=== PATIENT | female | born 1985 | race Caucasian/White ===

== ENCOUNTER 2016-10-12 21:28 | Emergency (ER) | payer OTHER ==
--- NOTE | 2016-10-12 23:36 | ED NURSING NOTES ---
Clinical Report - Nurses [facility] [address] [place] [address] 10/12/2016 21:29 Patient: ALEX ORTIZ TRIAGE Triage time 21:45 Oct 12 2016. Acuity: LEVEL 3. Chief Complaint: ABDOMINAL PAIN and BLOOD IN STOOLS, FLANK PAIN, DIFFICULTY VOIDING and DECREASED VOIDING (Abdominal distension). Alert. No acute distress. --21:52 Jhon Coleman R.N. 21:45 10/12/16. BP: 117/77. HR: 65. RR: 16. O2 saturation: 100% on room air. Temp: 98.2 F. Pain level now: 01/25. --21:52 Jhon Coleman R.N. Weight: 56.2 kg stated. Height/Length: 67 inches Per Patient. BMI: 19.4. --21:45 Jhon Coleman R.N. Medications Nitrofurantoin Oral. --21:47 Jhon Coleman R.N. Mirtazapine Oral. --22:11 Jhon Coleman R.N. Allergies Erythromycin. --21:48 Jhon Coleman R.N. Amoxicillin. --21:48 Jhon Coleman R.N. Sulfa. --21:48 Jhon Coleman R.N. Vicodin. --21:48 Jhon Coleman R.N. Midrin. --21:48 Jhon Coleman R.N. History Arrived by private vehicle. Historian: patient. Accompanied by family. Onset. (Roughly 5 days ago.). ( Pt has had abd pain for the past 5 days. Last night went to [place]. Abd CT revealed a L sided kidney stone. Pt sent home on abx. Pt feels like something was missed, she is having a lot of pain, reports bloody-mucus in her stool 2-3 days ago.). She has had nausea and vomiting. SOCIAL HX: Light tobacco smoker. Occasional alcohol use. History of drug use: marijuana. No infectious disease exposure. ABUSE ASSESSMENT: No report of abuse. FALL RISK ASSESSMENT: Fall risk assessment completed. No fall risk identified. NUTRITIONAL RISK ASSESSMENT: The nutritional risk assessment revealed no deficiencies. FUNCTIONAL ASSESSMENT: Functional assessment: no impairments noted. LEARNING NEEDS ASSESSMENT: The learning needs assessment revealed no barriers. SKIN INTEGRITY ASSESSMENT: Skin integrity risk assessment completed. No skin integrity risk identified. --21:52 Jhon Coleman R.N. PROBLEMS: Chronic Back Pain. Sprain. Tonsillitis. Sinusitis. Myalgias. Depression. Anxiety Reaction. Chest Wall Pain. Ovarian Cyst. Abdominal Pain. Ureterolithiasis. Nephrolithiasis. Myofascial Strain. Tetanus Status. Immunizations. LNMP - Last Normal Menstrual Period. --21:49 Jhon Coleman R.N. ADDITIONAL SURGERIES: Dilatation & Curettage. Oophorectomy. Tonsillectomy. Tubal Ligation. Uterine ablation. --21:49 Jhon Coleman R.N. Interventions ID band on patient. To treatment room. --21:52 Jhon Coleman R.N. PHYSICAL ASSESSMENT GENERAL / NEURO / PSYCH: Alert. Oriented X 4. Appears in no acute distress. RESPIRATORY: Respirations not labored. CVS: Capillary refill less than 2 seconds. GI / : Abdominal distention with tenderness to palpation. Diminished bowel sounds in all quadrants. Blood present in the stool. 2-3 days ago with mucous. SKIN: ( Pt reports some acute "rashes" to her face.). --21:53 Jhon Coleman R.N. NURSING PROGRESS NOTES Monitoring of patient in place. Reassurance given. Two patient identifiers checked. Call light placed in reach. Bed placed in lowest position. Patient ready for evaluation- ED physician notified. --21:53 Jhon Coleman R.N. Patient ID band checked for patient name and birthdate: patient confirmed. Instructions provided to collect clean catch urine and patient verbalized understanding. Clean catch urine collected with return of esteban-colored cloudy urine; sample sent to lab. --21:53 Jhon Coleman R.N. 22:24 10/12/2016 Site #1 started via IV in the right antecubital space with an 20g angiocath, with aseptic technique and good blood return; one attempt. Blood drawn: rainbow set. Labeled in the presence of the patient and sent to the lab. Saline lock flushed with 10 mL saline. --22:24 Jhon Coleman R.N. 22:24 10/12/2016 Started bag #1 1000 mL IV Fluids IV NS (Saline); bolus of 1000 mL wide open via site #1. Allergies verified and confirmed 5 rights. IV patency established. IV site checked: no pain, redness, or swelling. IV flushed thoroughly pre- and post-medication administration. Completed per protocol. --22:24 Jhon Coleman R.N. 22:25 10/12/2016 Toradol IVP 30 mg given. via site #1. Allergies verified and confirmed 5 rights. IV patency established. IV site checked: no pain, redness, or swelling. IV flushed thoroughly pre- and post-medication administration. IVP given by RN. --22:25 Jhon Coleman R.N. ( MD in to assess Pt. [place] [facility] [place] from Pt's visit last night. Pt is resting in room, family at bedside.). --22:26 Jhon Coleman R.N. 23:20 10/12/2016 IV Fluids IV NS Discontinued: bag #1 infused. Total amount infused: 1000 mL. IV patency established. IV site checked: no pain, redness, or swelling. IV flushed thoroughly. --23:20 Jhon Coleman R.N. 23:20 10/12/2016 Toradol IVP Response: no adverse reaction. --23:20 Jhon Coleman R.N. ( Pt is apparently asleep, resting comfortably, no noticed distress, Pt's son at bedside, [facility].). --23:20 Jhon Coleman R.N. Care transferred and report given (to JOHNNY Araya). --23:29 Jhon Coleman R.N. DISPOSITION / DISCHARGE 23:40 10/12/16. Condition at departure: stable. The goals identified in the patient's plan of care were met. No learning barriers present. Discharge instructions provided and reviewed with the patient and spouse. Reviewed need for increased fluid intake. Patient and spouse verbalized understanding. Written instructions provided in German. ( Follow up with your PCP in four days. Take prescribed medications as instructed. Return if symptoms worsen. Patient verbalized understanding and had no questions at this time.). The patient was discharged by the physician. She was discharged home and accompanied by spouse. She left the Emergency Department ambulatory and via private vehicle. Spouse driving. FALL RISK ASSESSMENT: Fall risk assessment completed. No fall risk identified. --00:04 Quiana Stephens 23:40 10/12/16. BP: 95/60. HR: 65. RR: 20. O2 saturation: 98% on room air. Temp: 98 F (oral). Pain level now: 08/25. --00:04 Quiana Stephens 23:40 10/12/2016 Site #1 removed upon discharge. Catheter intact. Bandaid applied. --00:04 Quiana Stephens. Locked/Released at 10/13/2016 0:05 by Quiana Stephens,
--- NOTE | 2016-10-12 23:36 | ED NURSING NOTES ---
Clinical Report - Nurses [facility] [address] [place] [address] 10/12/2016 21:29 Patient: ALEX ORTIZ TRIAGE Triage time 21:45 Oct 12 2016. Acuity: LEVEL 3. Chief Complaint: ABDOMINAL PAIN and BLOOD IN STOOLS, FLANK PAIN, DIFFICULTY VOIDING and DECREASED VOIDING (Abdominal distension). Alert. No acute distress. --21:52 Jhon Coleman R.N. 21:45 10/12/16. BP: 117/77. HR: 65. RR: 16. O2 saturation: 100% on room air. Temp: 98.2 F. Pain level now: 01/25. --21:52 Jhon Coleman R.N. Weight: 56.2 kg stated. Height/Length: 67 inches Per Patient. BMI: 19.4. --21:45 Jhon Coleman R.N. Medications Nitrofurantoin Oral. --21:47 Jhon Coleman R.N. Mirtazapine Oral. --22:11 Jhon Coleman R.N. Allergies Erythromycin. --21:48 Jhon Coleman R.N. Amoxicillin. --21:48 Jhon Coleman R.N. Sulfa. --21:48 Jhon Coleman R.N. Vicodin. --21:48 Jhon Coleman R.N. Midrin. --21:48 Jhon Coleman R.N. History Arrived by private vehicle. Historian: patient. Accompanied by family. Onset. (Roughly 5 days ago.). ( Pt has had abd pain for the past 5 days. Last night went to [place]. Abd CT revealed a L sided kidney stone. Pt sent home on abx. Pt feels like something was missed, she is having a lot of pain, reports bloody-mucus in her stool 2-3 days ago.). She has had nausea and vomiting. SOCIAL HX: Light tobacco smoker. Occasional alcohol use. History of drug use: marijuana. No infectious disease exposure. ABUSE ASSESSMENT: No report of abuse. FALL RISK ASSESSMENT: Fall risk assessment completed. No fall risk identified. NUTRITIONAL RISK ASSESSMENT: The nutritional risk assessment revealed no deficiencies. FUNCTIONAL ASSESSMENT: Functional assessment: no impairments noted. LEARNING NEEDS ASSESSMENT: The learning needs assessment revealed no barriers. SKIN INTEGRITY ASSESSMENT: Skin integrity risk assessment completed. No skin integrity risk identified. --21:52 Jhon Coleman R.N. PROBLEMS: Chronic Back Pain. Sprain. Tonsillitis. Sinusitis. Myalgias. Depression. Anxiety Reaction. Chest Wall Pain. Ovarian Cyst. Abdominal Pain. Ureterolithiasis. Nephrolithiasis. Myofascial Strain. Tetanus Status. Immunizations. LNMP - Last Normal Menstrual Period. --21:49 Jhon Coleman R.N. ADDITIONAL SURGERIES: Dilatation & Curettage. Oophorectomy. Tonsillectomy. Tubal Ligation. Uterine ablation. --21:49 Jhon Coleman R.N. Interventions ID band on patient. To treatment room. --21:52 Jhon Coleman R.N. PHYSICAL ASSESSMENT GENERAL / NEURO / PSYCH: Alert. Oriented X 4. Appears in no acute distress. RESPIRATORY: Respirations not labored. CVS: Capillary refill less than 2 seconds. GI / : Abdominal distention with tenderness to palpation. Diminished bowel sounds in all quadrants. Blood present in the stool. 2-3 days ago with mucous. SKIN: ( Pt reports some acute "rashes" to her face.). --21:53 Jhon Coleman R.N. NURSING PROGRESS NOTES Monitoring of patient in place. Reassurance given. Two patient identifiers checked. Call light placed in reach. Bed placed in lowest position. Patient ready for evaluation- ED physician notified. --21:53 Jhon Coleman R.N. Patient ID band checked for patient name and birthdate: patient confirmed. Instructions provided to collect clean catch urine and patient verbalized understanding. Clean catch urine collected with return of esteban-colored cloudy urine; sample sent to lab. --21:53 Jhon Coleman R.N. 22:24 10/12/2016 Site #1 started via IV in the right antecubital space with an 20g angiocath, with aseptic technique and good blood return; one attempt. Blood drawn: rainbow set. Labeled in the presence of the patient and sent to the lab. Saline lock flushed with 10 mL saline. --22:24 Jhon Coleman R.N. 22:24 10/12/2016 Started bag #1 1000 mL IV Fluids IV NS (Saline); bolus of 1000 mL wide open via site #1. Allergies verified and confirmed 5 rights. IV patency established. IV site checked: no pain, redness, or swelling. IV flushed thoroughly pre- and post-medication administration. Completed per protocol. --22:24 Jhon Coleman R.N. 22:25 10/12/2016 Toradol IVP 30 mg given. via site #1. Allergies verified and confirmed 5 rights. IV patency established. IV site checked: no pain, redness, or swelling. IV flushed thoroughly pre- and post-medication administration. IVP given by RN. --22:25 Jhon Coleman R.N. ( MD in to assess Pt. [place] [facility] [place] from Pt's visit last night. Pt is resting in room, family at bedside.). --22:26 Jhon Coleman R.N. 23:20 10/12/2016 IV Fluids IV NS Discontinued: bag #1 infused. Total amount infused: 1000 mL. IV patency established. IV site checked: no pain, redness, or swelling. IV flushed thoroughly. --23:20 Jhon Coleman R.N. 23:20 10/12/2016 Toradol IVP Response: no adverse reaction. --23:20 Jhon Coleman R.N. ( Pt is apparently asleep, resting comfortably, no noticed distress, Pt's son at bedside, [facility].). --23:20 Jhon Coleman R.N. Care transferred and report given (to JOHNNY Araya). --23:29 Jhon Coleman R.N. DISPOSITION / DISCHARGE 23:40 10/12/16. Condition at departure: stable. The goals identified in the patient's plan of care were met. No learning barriers present. Discharge instructions provided and reviewed with the patient and spouse. Reviewed need for increased fluid intake. Patient and spouse verbalized understanding. Written instructions provided in Thai. ( Follow up with your PCP in four days. Take prescribed medications as instructed. Return if symptoms worsen. Patient verbalized understanding and had no questions at this time.). The patient was discharged by the physician. She was discharged home and accompanied by spouse. She left the Emergency Department ambulatory and via private vehicle. Spouse driving. FALL RISK ASSESSMENT: Fall risk assessment completed. No fall risk identified. --00:04 Quiana Stephens 23:40 10/12/16. BP: 95/60. HR: 65. RR: 20. O2 saturation: 98% on room air. Temp: 98 F (oral). Pain level now: 08/25. --00:04 Quiana Stephens 23:40 10/12/2016 Site #1 removed upon discharge. Catheter intact. Bandaid applied. --00:04 Quiana Stephens. Locked/Released at 10/13/2016 0:05 by Quiana Stephens,
--- NOTE | 2016-10-12 23:36 | ED ORDER SUMMARY ---
..... Patient: ALEX ORTIZ OrderSheet [facility] VisitID: [id number] [place] [address] 31y, F Registration Date/Time: 10/12/2016 ORDER SHEET Weight: 56.2 kg (stated) Allergies: Erythromycin, Amoxicillin, Sulfa, Vicodin, Midrin GENERAL ORDERS: CBC w Diff Urgent (22:18 10/12/2016 Martine Maldonado) (22:19 MCook R.N.) CMP Urgent (22:18 10/12/2016 Martine Maldonado) (22:19 MCook R.N.) UA-Culture if indicated Urgent (22:18 10/12/2016 Martine Maldonado) (22:19 MCook R.N.) Amylase Urgent (22:18 10/12/2016 Martine Maldonado) (22:19 MCook R.N.) Lipase Urgent (22:18 10/12/2016 Martine Maldonado) (22:19 MCook R.N.) Urine Drug Screen Urgent (22:18 10/12/2016 Martine Maldonado) (22:19 MCook R.N.) Urine Urgent (22:18 10/12/2016 Martine Maldonado) (22:19 MCook R.N.) MEDICATION ORDERS: IV FLUIDS: IV NS : initial bolus none -, then 1000 mL/hr for X1 (NOW) (22:18 10/12/2016 Martine Maldonado) (22:24 MCook R.N.) Toradol IV 30 mg (NOW) (22:18 10/12/2016 Martine Maldonado) (22:25 MCook R.N.) ORDER SHEET NOTES: [Electronically signed by Philippe Lindsay Dr. (23:42 10/12/2016)] [Electronically signed by Quiana Stephens (00:04 10/13/2016)] [Electronically locked/signed by Quiana Stephens (00:04 10/13/2016)]
--- NOTE | 2016-10-12 23:36 | ED ORDER SUMMARY ---
..... Patient: ALEX ORTIZ OrderSheet [facility] VisitID: [id number] [place] [address] 31y, F Registration Date/Time: 10/12/2016 ORDER SHEET Weight: 56.2 kg (stated) Allergies: Erythromycin, Amoxicillin, Sulfa, Vicodin, Midrin GENERAL ORDERS: CBC w Diff Urgent (22:18 10/12/2016 Martine Maldonado) (22:19 MCook R.N.) CMP Urgent (22:18 10/12/2016 Martine Maldonado) (22:19 MCook R.N.) UA-Culture if indicated Urgent (22:18 10/12/2016 Martine Maldonado) (22:19 MCook R.N.) Amylase Urgent (22:18 10/12/2016 Martine Maldonado) (22:19 MCook R.N.) Lipase Urgent (22:18 10/12/2016 Martine Maldonado) (22:19 MCook R.N.) Urine Drug Screen Urgent (22:18 10/12/2016 Martine Maldonado) (22:19 MCook R.N.) Urine Urgent (22:18 10/12/2016 Martine Maldonado) (22:19 MCook R.N.) MEDICATION ORDERS: IV FLUIDS: IV NS : initial bolus none -, then 1000 mL/hr for X1 (NOW) (22:18 10/12/2016 Martine Maldonado) (22:24 MCook R.N.) Toradol IV 30 mg (NOW) (22:18 10/12/2016 Martine Maldonado) (22:25 MCook R.N.) ORDER SHEET NOTES: [Electronically signed by Philippe Lindsay Dr. (23:42 10/12/2016)] [Electronically signed by Quiana Stephens (00:04 10/13/2016)] [Electronically locked/signed by Quiana Stephens (00:04 10/13/2016)]
--- NOTE | 2016-10-12 23:36 | ED CLINICAL REPORT ---
Clinical Report - Physicians/Mid Levels [facility] [address] [place] [address] 10/12/2016 21:29 Patient: ALEX ORTIZ Time Seen: 21:52; initial patient contact. Arrived- By private vehicle. Historian- patient. HISTORY OF PRESENT ILLNESS Chief Complaint: ABDOMINAL PAIN. At its maximum, severity described as moderate. When seen in the E.D., severity described as moderate. Modifying factors. Not worsened by anything. Not relieved by anything. It is described as sharp and it is described as located in the left abdomen and the left flank and radiating to the groin. This started about 5 days ago and is still present. The patient has had nausea and vomiting. No loss of appetite or diarrhea. Similar symptoms previously: Many times. Recent medical care: The patient was seen recently in the emergency department. ( Records from [facility] reviewed: Nl CT Abd/Pel except for L lower pole non-obs stone. Nl CBC and CMP. UCx Pos for Nitrofurantoin sensitive E coli.). Seen for similar symptoms. Evaluation/treatment: abdominal CT scan, labs and antibiotic and pain medication prescribed. Diagnosis: urinary tract infection and kidney stone. REVIEW OF SYSTEMS No constipation, hematemesis, difficulty with urination, pain with urination or urinary frequency. No fever or chills. She has had bloody stools (3 days ago). All systems otherwise negative, except as recorded above. PAST HISTORY Chronic Back Pain. Sprain. Tonsillitis. Sinusitis. Myalgias. Depression. Anxiety Reaction. Chest Wall Pain. Ovarian Cyst. Abdominal Pain. Ureterolithiasis. Nephrolithiasis. Myofascial Strain. SURGERIES: Dilatation & Curettage. Oophorectomy. Tonsillectomy. Tubal Ligation. Uterine ablation. SOCIAL HISTORY Current every day smoker. Occasional alcohol use. History of drug use: marijuana. ADDITIONAL NOTES The nursing notes have been reviewed. PHYSICAL EXAM Vital Signs: 10/12/2016 21:45 BP: 117/77. HR: 65. RR: 16. O2 saturation: 100%. Temp: 98.2 F. Pain level now: 8/10. Have been reviewed as normal. Appearance: Alert. Oriented X3. No acute distress. (appears intoxicated, slow speech and eyes half closed.). Eyes: Pupils equal, round and reactive to light. Eyes normal inspection. ENT: Dry mucous membranes present. CVS: Normal heart rate and rhythm. Heart sounds normal. Respiratory: No respiratory distress. Breath sounds normal. Abdomen: Soft. Mild tenderness in the left lower quadrant. No guarding or rebound tenderness. Bowel sounds normal. No organomegaly. No mass. Distention with dullness to percussion. Back: Normal inspection. No CVA tenderness. Skin: Skin warm and dry. Normal skin color. No rash. Extremities: No lower extremity edema. Neuro: Oriented X 3. LABS, X-RAYS, AND EKG Laboratory Tests: UA-Culture if indicated: (TANIA: 10/12/2016 21:55) ( [facility] Final results Test Result Flag Units (Reference) URINE COLOR YELLOW URINE APPEARANCE CLEAR URINE GLUCOSE NEGATIVE (NEGATIVE) URINE BILIRUBIN NEGATIVE (NEGATIVE) URINE KETONE NEGATIVE (NEGATIVE) URINE SPECIFIC GRAVITY 1.025 (1.010-1.030) URINE PH 5.5 (5.0-8.0) URINE PROTEIN NEGATIVE (NEGATIVE) URINE UROBILINOGEN 0.2 EU/dL (0.2-1.0) URINE NITRITE NEGATIVE (NEGATIVE) URINE BLOOD NEGATIVE (NEGATIVE) URINE LEUK ESTERASE NEGATIVE (NEGATIVE) URINE RBC 0-1 rbc/hpf (0-1) URINE WBC 1-3 wbc/hpf (0-1) URINE EPITHELIAL CELLS 10-15 EPI/hpf (0-5) URINE BACTERIA NONE SEEN (NONE SEEN) URINE COMMENT CULT NOT INDICATED URINE CULTURES ARE SET-UP BASED ON THE FOLLOWING CRITERIA:POSITIVE NITRITEPOSITIVE LEUKOCYTE ESTERASEGREATER THAN 10 WHITE BLOOD CELLSMODERATE (2+) OR GREATER BACTERIA Urine: (TANIA: 10/12/2016 21:55) ( [facility] 22:39) Final results Test Result Flag Units (Reference) URINE NEGATIVE CBC w Diff: (TANIA: 10/12/2016 22:05) ( MsgRcvd 10/12/2016 22:37) Final results Test Result Flag Units (Reference) WHITE BLOOD COUNT 9.3 K/uL (4.5-11.5) RED BLOOD COUNT 3.91 L M/uL (4.00-5.20) HEMOGLOBIN 12.0 gm/dL (12.0-16.0) HEMATOCRIT 36.1 % (36.0-46.0) MEAN CELL VOLUME 92 fL (80-100) MEAN CORPUSCULAR HGB 31 pg (26-34) MEAN CORPUSCULAR HGB CONC 33 g/dL (31-37) RED CELL DISTRIBUTION WIDTH 12.9 % (11.6-14.8) PLATELET COUNT 225 K/uL (150-400) NEUTROPHIL % 57.8 % (50-75) LYMPH % 31.0 % (25-40) MONO % 6.8 % (3-14) EOSINOPHIL % 4.1 H % (0-4) BASOPHIL % 0.3 % (0-2) Urine Drug Screen: (TANIA: 10/12/2016 21:55) ( MsgRcvd 10/12/2016 22:47) Final results Test Result Flag Units (Reference) AMPHETAMINE/METHAMPHETAMINE NEGATIVE (NEGATIVE) BARBITURATE NEGATIVE (NEGATIVE) BENZODIAZEPINE POSITIVE H (NEGATIVE) CANNABINOID POSITIVE H (NEGATIVE) COCAINE NEGATIVE (NEGATIVE) ECSTASY NEGATIVE (NEGATIVE) METHADONE NEGATIVE (NEGATIVE) OPIATE POSITIVE H (NEGATIVE) The urine drug screen is a qualitative screening test fordrug overdose and abuse. All screen results should beconsidered as presumptive.Drugs screened for are as follows:BenzodiazepinesCocaineAmphetamines/MetamphetaminesTHC (Tetrahydrocannabinol)OpiatesBarbituratesEcstasyMethadonePositive results are unconfirmed. For confirmation, notifythe lab for the specimen to be sent to the reference lab.All confirmations must be performed by a differentmethodology.The ingestion of natural herbal and plant productscontaining Ephedra/Ephedra metabolites can produce in urineone or more substances capable of cross reacting withamphetamine/methamphetamine immunoassays. These testsprovide a preliminary result only. A more specificalternative chemical method must be used to obtain aconfirmed analytical result. CMP: (TANIA: 10/12/2016 22:05) ( MsgRcvd 10/12/2016 23:19) Final results Test Result Flag Units (Reference) GLUCOSE 94 mg/dL (70-110) BUN 16 mg/dL (7-18) CREATININE 0.9 mg/dL (0.6-1.3) Estimated GFR >60 mL/min Estimated GFR- >60 mL/min Note: Persistent reduction over 3 months in eGFR<60 mL/min/1.73 m2 defines CKD. Patients with eGFR values>=60 mL/min/1.73 m2 may also have CKD if evidence ofpersistent proteinuria. Additional information may be foundat www.kidney.org. SODIUM 142 mmol/L (136-145) POTASSIUM 3.5 mmol/L (3.5-5.1) CHLORIDE 102 mmol/L (98-107) CARBON DIOXIDE 31 mmol/L (21-32) CALCIUM 8.7 mg/dL (8.5-10.1) TOTAL PROTEIN 7.2 g/dL (6.4-8.2) ALBUMIN 3.9 g/dL (3.3-5.0) BILIRUBIN, TOTAL 0.3 mg/dL (0.0-1.0) ALKALINE PHOSPHATASE 80 U/L (46-116) AST (SGOT) 30 U/L (15-37) ALT (SGPT) 23 U/L (12-78) LIPASE 164 U/L (73-393) AMYLASE 32 U/L (25-115) . PROGRESS AND PROCEDURES Disposition: Discharged home in good and improved condition. Condition: good. CLINICAL IMPRESSION Acute left lower quadrant abdominal pain of unknown cause. Acute urinary tract infection with cystitis (Confirmed from records from [facility]). INSTRUCTIONS Drink plenty of fluids. Your Current Medications: CONTINUE TAKING THE FOLLOWING MEDICATIONS: Mirtazapine Oral. Nitrofurantoin Oral. Follow-up: Follow up with your doctor in about four days. Call for an appointment. Screening today revealed the patient's blood pressure to be in the normal range. (Electronically signed by Philippe Lindsay Dr. 10/12/2016 23:42)
--- NOTE | 2016-10-13 00:05 | ED DISCHARGE INSTRUCTIONS ---
Patient: ALEX ORTIZ General Instructions [facility] VisitID: [id number] [place] [address] 31y, F Registration Date/Time: 10/12/2016 Acute left lower quadrant abdominal pain of unknown cause. Acute urinary tract infection with cystitis (Confirmed from records from [place]). INSTRUCTIONS Drink plenty of fluids. Your Current Medications: CONTINUE TAKING THE FOLLOWING MEDICATIONS: Mirtazapine Oral. Nitrofurantoin Oral. Follow-up: Follow up with your doctor in about four days. Call for an appointment. Screening today revealed the patient's blood pressure to be in the normal range. ADDITIONAL INFORMATION Abdominal Pain, Unknown Cause (Female) The exact cause of your abdominal (stomach) pain is not certain. This does not mean that this is something to worry about, or the right tests were not done. Everyone likes to know the exact cause of the problem, but sometimes with abdominal pain, there is no clear-cut cause, and this could be a good thing. The good news is that your symptoms can be treated, and you will feel better. Your condition does not seem serious now; however, sometimes the signs of a serious problem may take more time to appear. For this reason,it is important for you to watch for any new symptoms, problems,or worsening of your condition. Over the next few days, the abdominal pain may come and go, or be continuous. Other common symptoms can include nausea and vomiting. Sometimes it can be difficult to tell if you feel nauseous, you may just feel bad and not associate that feeling with nausea. Constipation, diarrhea, and a fever may go along with the pain. The pain may continue even if treated correctly over the following days. Depending on how things go, sometimes the cause can become clear and may require further or different treatment. Additional evaluations, medications, or tests may be needed. Home care Your health care provider may prescribe medications for pain, symptoms, or an infection. Follow the health care provider's instructions for taking these medications. General care Rest until your next exam. No strenuous activities. Try to find positions that ease discomfort. A small pillow placed on the abdomen may help relieve pain. Something warm on your abdomen (such as a heating pad) may help, but be careful not to burn yourself. Diet Do not force yourself to eat, especially if having cramps, vomiting, or diarrhea. Water is important so you do not get dehydrated. Soup may also be good. Sports drinks may also help, especially if they are not too acidic. Make sure you don't drink sugary drinks as this can make things worse. Take liquids in small amounts. Do not guzzle them. Caffeine sometimes makes the pain and cramping worse. Avoid dairy products if you have vomiting or diarrhea. Don't eat large amounts at a time. Wait a few minutes between bites. Eat a diet low in fiber (called a low-residue diet). Foods allowed include refined breads, white rice, fruit and vegetable juices without pulp, tender meats. These foods will pass more easily through the intestine. Avoid whole-grain foods, whole fruits and vegetables, meats, seeds and nuts, fried or fatty foods, dairy, alcohol and spicy foods until your symptoms go away. Follow-up care Follow up with your health care provider as instructed, or if your pain does not begin to improve in the next 24 hours. When to seek medical care Seek prompt medical care if any of the following occur: Pain gets worse or moves to the right lower abdomen New or worsening vomiting or diarrhea Swelling of the abdomen Unable to pass stool for more than three days Fever of 100.4F (38C) or higher, or as directed by your healthcare provider. Blood in vomit or bowel movements (dark red or black color) Jaundice (yellow color of eyes and skin) Weakness, dizziness Chest, arm, back, neck or jaw pain Unexpected vaginal bleeding or missed period Call 911 Call emergency services if any of the following occur: Trouble breathing Confusion Fainting or loss of consciousness Rapid heart rate Seizure Bladder Infection,Female (Adult) A bladder infection ("cystitis" or "UTI") usually causes a constant urge to urinate and a burning when passing urine. Urine may be cloudy, smelly or dark. There may be pain in the lower abdomen. A bladder infection occurs when bacteria from the vaginal area enter the bladder opening (urethra). This can occur from sexual intercourse, wearing tight clothing, dehydration and other factors. Home Care: Drink lots of fluids (at least 6-8 glasses a day, unless you must restrict fluids for other medical reasons). This will force the medicine into your urinary system and flush the bacteria out of your body. Avoid sexual intercourse until your symptoms are gone. Avoid caffeine, alcohol and spicy foods. These can irritate the bladder. A bladder infection is treated with antibiotics. You may also be given Pyridium (generic = phenazopyridine) to reduce the burning sensation. This medicine will cause your urine to become a bright orange color. The orange urine may stain clothing. You may wear a pad or panty-liner to protect clothing. Preventing Future Infections: Always wipe from front to back after a bowel movement. Keep the genital area clean and dry. Drink plenty of fluids each day to avoid dehydration. Both sexual partners should wash before intercourse. Urinate right after intercourse to flush out the bladder. Wear cotton underwear and cotton-lined panty hose; avoid tight-fitting pants. If you are on control pills and are having frequent bladder infections, discuss with your doctor. Follow Up: Return to this facility or see your doctor if ALL symptoms are not gone after three days of treatment. Get Prompt Medical Attention if any of the following occur: Fever of 100.4F (38C) or higher, or as directed by your healthcare provider No improvement by the third day of treatment Increasing back or abdominal pain Repeated vomiting; unable to keep medicine down Weakness, dizziness or fainting Vaginal discharge Pain, redness or swelling in the labia (outer vaginal area) You have been given the following additional information: Abdominal Pain, Unknown Cause, (Female) Bladder Infection, Female (Adult) (Electronically signed by Philippe Lindsay Dr. 10/12/2016 23:42)
--- NOTE | 2016-10-13 00:05 | ED MED RECONCILIATION SUMMARY ---
Patient: ALEX ORTIZ Medication Reconciliation Report [facility] VisitID: [id number] [address] [place] [address] 31y, F Registration Date/Time: 10/12/2016 Weight: 56.2 kg Height/Length: 67 in. BMI: 19.4 ALLERGIES: Amoxicillin, Erythromycin, Midrin, Sulfa, Vicodin The patient's Home Medications are listed below: CONTINUE TAKING THE FOLLOWING MEDICATIONS: Mirtazapine Oral Nitrofurantoin Oral The source(s) of the original Home Medication information: Not obtained. The following Medications were given to the patient in the Emergency Department: IV NS IV Fluids bolus 1000 mL wide open, administered: 10/12/2016 10:24:00 PM Toradol [IVP] IVP 30 mg, administered: 10/12/2016 10:25:00 PM The following Medications were prescribed to the patient: None.
--- NOTE | 2016-10-13 00:05 | ED MAR SUMMARY ---
..... Medication Administration Record [facility] [address] [place] [address] Patient: ALEX ORTIZ Visit ID: [id number] 31y, F Weight: 56.2 kg Height/Length: 67 in BMI: 19.4 ALLERGIES: Midrin, Vicodin, Sulfa, Amoxicillin, Erythromycin Start 22:24 10/12/2016 Jhon Coleman R.N., Stop 23:20 10/12/2016 Jhon Coleman R.N. Medication Administered: IV NS (SALINE), Dose: IV Fluids, Bolus: 1000 mL wide open, Dispensed: 1000 mL bag, Site: #1 right AC. Medication Ordered: IV NS : initial bolus none -, then 1000 mL/hr for X1 (NOW). Given 22:25 10/12/2016 Jhon Coleman R.N. Medication Administered: TORADOL [IVP], Dose: 30 mg IVP, Site: #1 right AC. Medication Ordered: Toradol IV 30 mg (NOW).
--- NOTE | 2016-10-13 00:05 | ED MED RECONCILIATION SUMMARY ---
Patient: ALEX ORTIZ Medication Reconciliation Report [facility] VisitID: [id number] [address] [place] [address] 31y, F Registration Date/Time: 10/12/2016 Weight: 56.2 kg Height/Length: 67 in. BMI: 19.4 ALLERGIES: Amoxicillin, Erythromycin, Midrin, Sulfa, Vicodin The patient's Home Medications are listed below: CONTINUE TAKING THE FOLLOWING MEDICATIONS: Mirtazapine Oral Nitrofurantoin Oral The source(s) of the original Home Medication information: Not obtained. The following Medications were given to the patient in the Emergency Department: IV NS IV Fluids bolus 1000 mL wide open, administered: 10/12/2016 10:24:00 PM Toradol [IVP] IVP 30 mg, administered: 10/12/2016 10:25:00 PM The following Medications were prescribed to the patient: None.
--- NOTE | 2016-10-13 00:05 | ED MAR SUMMARY ---
..... Medication Administration Record [facility] [address] [place] [address] Patient: ALEX ORTIZ Visit ID: [id number] 31y, F Weight: 56.2 kg Height/Length: 67 in BMI: 19.4 ALLERGIES: Midrin, Vicodin, Sulfa, Amoxicillin, Erythromycin Start 22:24 10/12/2016 Jhon Coleman R.N., Stop 23:20 10/12/2016 Jhon Coleman R.N. Medication Administered: IV NS (SALINE), Dose: IV Fluids, Bolus: 1000 mL wide open, Dispensed: 1000 mL bag, Site: #1 right AC. Medication Ordered: IV NS : initial bolus none -, then 1000 mL/hr for X1 (NOW). Given 22:25 10/12/2016 Jhon Coleman R.N. Medication Administered: TORADOL [IVP], Dose: 30 mg IVP, Site: #1 right AC. Medication Ordered: Toradol IV 30 mg (NOW).
== END 2016-10-12 23:40 | disposition home or self-care (01) ==
LOC: ED SRH 21:28
DX: R10.32 Left lower quadrant pain (principal); N30.90 Cystitis, unspecified without hematuria; F17.210 Nicotine dependence, cigarettes, uncomplicated; Z88.1 Allergy status to other antibiotic agents; Z88.2 Allergy status to sulfonamides
CPT/HCPCS: 90004; 90100; 92235; 92530; 92760; 92761; 92762; 92763; 92764; 92765; 92766; 92767; 93070; 95059